=== PATIENT | female | born 1995 | race Two or more races ===

== ENCOUNTER 2022-11-05 21:02 | Emergency (ER) | payer OTHER ==
[~2022-11-05] VITALS: Ht 157.5 cm; Wt 63.0 kg
[2022-11-06] MEDS ORDERED: KETO10TA2 PO (06:17)
== END 2022-11-06 06:34 ==
LOC: ER 21:02
DX: K80.20 Calculus of gallbladder without cholecystitis without obstruction (principal); N83.202 Unspecified ovarian cyst, left side; R10.2 Pelvic and perineal pain; R10.9 Unspecified abdominal pain